=== PATIENT | male | born 1990 | race Caucasian/White ===

== ENCOUNTER → 2019-06-22 16:14 | Outpatient (CLI) | payer OTHER, SELFPAY ==
[2019-06-22 18:44] LABS: HIV 1 & 2 Ab/Ag 4th Gen Combo NEGATIVE (NEGATIVE)
[2019-06-25 08:39] LABS: Hepatitis A Antibody IgM NONREACTIVE; Hepatitis Acute Panel Interp 0.01; Hepatitis B Core Antibody IgM NONREACTIVE; Hepatitis B Surface Antigen NONREACTIVE; Hepatitis C Antibody NONREACTIVE
== END ==
PROVIDERS: PCP Family Medicine; Referring Provider Family Medicine; Visit Provider Family Medicine
DX: Z13.220 Encounter for screening for lipoid disorders (principal); Z31.9 Encounter for procreative management, unspecified; R07.9 Chest pain, unspecified
CPT/HCPCS: 36415; 80074; 87389

== ENCOUNTER → 2020-05-19 12:12 | Outpatient (CLI) | payer OTHER, SELFPAY ==
--- NOTE | 2020-05-19 12:14 | DI.RAD.S_ITS ---
PROCEDURE: XR LUMBAR SPINE 2-3V INDICATIONS: disc bulge TECHNIQUE: 3 views of the lumbar spine were acquired. COMPARISON: None. FINDINGS: Bones: No fracture. Straightening of the normal lordotic curvature. Multilevel degenerative endplate sclerosis and spurring. Diffuse facet arthropathy. Mild narrowing of the lumbar disc spaces. Mild levocurvature Soft tissues: Overlying bowel gas pattern is normal. No suspicious soft tissue calcifications. IMPRESSION: Mild levocurvature and lumbar spondylosis. Diffuse facet arthropathy Dictated by: Fabian Black M.D. on 05/19/2020 at 14:57 Approved by: Fabian Black M.D. on 05/19/2020 at 14:58
== END ==
PROVIDERS: PCP Family Medicine; Referring Provider Family Medicine; Visit Provider Family Medicine
DX: M51.26 Other intervertebral disc displacement, lumbar region (principal); M47.816 Spondylosis without myelopathy or radiculopathy, lumbar region
CPT/HCPCS: 72100

== ENCOUNTER → 2023-05-02 15:52 | Outpatient (CLI) | payer OTHER, SELFPAY ==
--- NOTE | 2023-05-02 15:54 | DI.RAD.S_ITS ---
PROCEDURE: XR FOOT RT MIN 3V INDICATIONS: R foot pain, acute TECHNIQUE: 3 views of the foot were acquired. COMPARISON: None. FINDINGS: Bones: No fractures or dislocations. No suspicious bony lesions. Soft tissues: No tibiotalar joint effusion. Achilles tendon appears normal. IMPRESSION: No acute bony abnormality. No visualized acute fracture or dislocation. However, if clinical concern and/or pain persist, short interval imaging followup in 7-10 days is recommended, as occult injury cannot be definitively excluded. Dictated by: Karla Quintanilla M.D. on 05/02/2023 at 22:34 Approved by: Karla Quintanilla M.D. on 05/02/2023 at 22:34
== END ==
PROVIDERS: PCP Family Medicine; Referring Provider Family Medicine; Visit Provider Family Medicine
DX: M79.671 Pain in right foot (principal)
CPT/HCPCS: 73630